=== PATIENT | female | born 1950 | race African-American/Black ===

== ENCOUNTER 2022-06-04 15:04 | Outpatient (CLI) | payer MEDICARE | END 2022-06-04 15:05 | disposition home or self-care (01) | LOC: CSHMAMMO 15:04 | PROVIDERS: ATTEND Family Medicine | DX: Z12.31 Encounter for screening mammogram for malignant neoplasm of breast (principal) | CPT/HCPCS: 77063; 77067 ==

== ENCOUNTER 2023-05-09 07:40 | Observation (INO) | payer OTHER ==
[2023-05-09] MEDS ORDERED: Ondansetron ODT 4 MG TAB PO PRN (09:07)
[2023-05-09] MEDS ORDERED: Ondansetron PF 4 MG/2 ML Vial IVP PRN (09:07)
[2023-05-09] MEDS ORDERED: Acetaminophen 325 MG TAB ONE (11:13)
[2023-05-09] MEDS ORDERED: Carvedilol 12.5 MG TAB PO SCH ×2 (11:45→17:00)
[2023-05-09] MEDS ORDERED: NIFEdipine XL 30 MG ER.TAB PO SCH (11:45)
[2023-05-09] MEDS ORDERED: Carvedilol 6.25 MG TAB ONE (11:56)
[2023-05-09] MEDS ORDERED: NIFEdipine XL 30 MG ER.TAB ONE (11:56)
[2023-05-09 13:46] VITALS: BMI 30.4
[2023-05-09] MEDS: Carvedilol 12.5 MG TAB PO SCH (16:36)
[2023-05-09] MEDS: Acetaminophen 325 MG TAB PO PRN ×2 (16:40→21:16)
[2023-05-09] MEDS: Docusate 100 MG CAP PO PRN (17:26)
[2023-05-09] MEDS ORDERED: Furosemide 40 MG TAB PO SCH (21:00)
[2023-05-09] MEDS: Temazepam 15 MG CAP PO SCH (21:01)
[2023-05-09] MEDS: Potassium Bicarbonate/Cit Ac 20 MEQ TAB PO SCH (21:01)
[2023-05-09] MEDS: Timolol 0.5% Ophth Soln 5 ml Bottle EA EYE SCH (21:02)
[2023-05-09] MEDS: Estradiol 1 MG TAB PO SCH (21:02)
[2023-05-09] MEDS: Brimonidine Tartrate 0.2% Ophth Soln 5 ml Bottle EA EYE SCH (21:03)
[2023-05-09] MEDS: Atorvastatin Calcium 20 MG TAB PO SCH (21:04)
[2023-05-10 04:15] LABS: Anion Gap 11 mmol/L (10-20); BUN (Urea Nitrogen) 12 mg/dL (9.8-20.1); Calc. Creatinine Clearance 93 mL/min (70-130); Calcium 9.5 mg/dL (7.8-10.44); Carbon Dioxide 25 mmol/L (23-31); Chloride 107 mmol/L (98-107); Estimated GFR 85; Glucose 107 mg/dL (83-110); Potassium 3.3 mmol/L (3.5-5.1); Sodium 140 mmol/L (136-145)
[2023-05-10 04:24] LABS: #Eosinphils 0.2 10x3/uL (0.0-0.5); #Monocytes 0.3 10x3/uL (0.0-1.1); #Neutrophils 2.1 10x3/uL (1.5-8.4); %Eosinophils 5.7 % (0.0-6.0); %Lymphocytes 29.8 % (18.0-47.0); %Monocytes 8.3 % (0.0-10.0); %Neutrophils 54.9 % (40.0-75.0); Hematocrit 36.7 % (34.9-44.5); Hemoglobin 12.1 g/dL (12.0-15.5); Mean Corpuscular Hemoglobin 30.3 pg (27.0-33.0); Mean Platelet Volume 12.9 fl (7.4-10.4); Platelet Count 116 10x3/uL (150-450); RBC Distribution Width 14.6 % (11.5-14.5); Red Blood Cell (RBC) Count 3.99 10x6/uL (3.90-5.03); White Blood Cell (WBC) Count 3.9 10x3/uL (3.5-10.5)
[2023-05-10] MEDS: Acetaminophen 325 MG TAB PO PRN (04:30)
[2023-05-10 04:50] LABS: Platelet Adequacy Comment Appears Decreased; RBC Morph Comment Within Normal Limits
[2023-05-10] MEDS ORDERED: Ibuprofen 200 MG TAB PO SCH (07:30)
[2023-05-10] MEDS: traMADol HCl 50 MG TAB PO PRN ×2 (08:48→21:17)
[2023-05-10] MEDS: Potassium Bicarbonate/Cit Ac 20 MEQ TAB PO SCH ×3 (08:50→21:16)
[2023-05-10] MEDS: Docusate 100 MG CAP PO PRN (08:51)
[2023-05-10] MEDS: Aspirin 81 mg Enteric Coated Tablet PO SCH (08:51)
[2023-05-10] MEDS: Carvedilol 12.5 MG TAB PO SCH ×2 (08:51→17:01)
[2023-05-10] MEDS: Estradiol 1 MG TAB PO SCH ×2 (08:51→21:17)
[2023-05-10] MEDS: Brimonidine Tartrate 0.2% Ophth Soln 5 ml Bottle EA EYE SCH ×2 (08:51→21:19)
[2023-05-10] MEDS: Fish Oil 1,000 MG CAP PO SCH (08:51)
[2023-05-10] MEDS: Furosemide 40 MG TAB PO SCH ×2 (08:51→14:37)
[2023-05-10] MEDS: Timolol 0.5% Ophth Soln 5 ml Bottle EA EYE SCH ×2 (08:52→21:20)
[2023-05-10] MEDS ORDERED: Potassium Chloride 20 MEQ TAB PO SCH (09:00)
[2023-05-10] MEDS ORDERED: NIFEdipine XL 30 MG ER.TAB PO SCH ×3 (09:00)
[2023-05-10] MEDS ORDERED: SUMAtriptan Succinate 50 MG TAB PO SCH (11:00)
[2023-05-10] MEDS: Ketorolac Tromethamine 30 MG/ML VIAL IVP SCH ×2 (11:33→17:01)
[2023-05-10] MEDS: SUMAtriptan Succinate 6 MG/0.5 ML VIAL SC PRN ×2 (11:49→14:38)
[2023-05-10] MEDS: Temazepam 15 MG CAP PO SCH (21:16)
[2023-05-10] MEDS: Atorvastatin Calcium 20 MG TAB PO SCH (21:17)
[2023-05-11] MEDS: Aspirin 81 mg Enteric Coated Tablet PO SCH (08:36)
[2023-05-11] MEDS: Timolol 0.5% Ophth Soln 5 ml Bottle EA EYE SCH ×2 (08:36→21:48)
[2023-05-11] MEDS: Potassium Bicarbonate/Cit Ac 20 MEQ TAB PO SCH ×3 (08:36→21:45)
[2023-05-11] MEDS: Furosemide 40 MG TAB PO SCH ×2 (08:36→14:36)
[2023-05-11] MEDS: Brimonidine Tartrate 0.2% Ophth Soln 5 ml Bottle EA EYE SCH ×2 (08:36→21:48)
[2023-05-11] MEDS: Estradiol 1 MG TAB PO SCH ×2 (08:36→21:44)
[2023-05-11] MEDS: NIFEdipine XL 30 MG ER.TAB PO SCH (08:36)
[2023-05-11] MEDS: Fish Oil 1,000 MG CAP PO SCH (08:36)
[2023-05-11] MEDS: Carvedilol 12.5 MG TAB PO SCH ×2 (08:36→14:36)
[2023-05-11] MEDS: SUMAtriptan Succinate 6 MG/0.5 ML VIAL SC PRN ×2 (09:58→21:43)
[2023-05-11] MEDS: Temazepam 15 MG CAP PO SCH (21:45)
[2023-05-11] MEDS: Atorvastatin Calcium 20 MG TAB PO SCH (21:45)
[2023-05-12 07:17] VITALS: BP 163/75; TEMP 98.1
[2023-05-12] MEDS: Furosemide 40 MG TAB PO SCH (08:30)
[2023-05-12] MEDS: Potassium Bicarbonate/Cit Ac 20 MEQ TAB PO SCH (08:30)
[2023-05-12] MEDS: Carvedilol 12.5 MG TAB PO SCH (08:30)
[2023-05-12] MEDS: Fish Oil 1,000 MG CAP PO SCH (08:30)
[2023-05-12] MEDS: NIFEdipine XL 30 MG ER.TAB PO SCH (08:30)
[2023-05-12] MEDS: Estradiol 1 MG TAB PO SCH (08:30)
[2023-05-12] MEDS: Aspirin 81 mg Enteric Coated Tablet PO SCH (08:30)
[2023-05-12] MEDS: Timolol 0.5% Ophth Soln 5 ml Bottle EA EYE SCH (08:31)
[2023-05-12] MEDS: Brimonidine Tartrate 0.2% Ophth Soln 5 ml Bottle EA EYE SCH (08:31)
== END 2023-05-12 10:43 | disposition home or self-care (01) ==
LOC: CSHERS 07:40 → INTOOBSV 09:07 → CSHERHOLD 09:07 → CSHTELE 13:26
PROVIDERS: ADMIT Student in an Organized Health Care Education/Training Program; ATTEND Internal Medicine
DX: I10 Essential (primary) hypertension (principal); G43.909 Migraine, unspecified, not intractable, without status migrainosus; I47.1 Supraventricular tachycardia; M19.90 Unspecified osteoarthritis, unspecified site; H40.9 Unspecified glaucoma; Z91.048 Other nonmedicinal substance allergy status; Z79.82 Long term (current) use of aspirin; Z79.899 Other long term (current) drug therapy
CPT/HCPCS: 70450; 71045; 80048; 80053; 81001; 83880; 84484; 85025 ×2; 93005 ×2; 94760 ×5; 96372; 96374; 96376; G0378 ×5; 36415; 93010; 96365; 96375; J1200; J1885; J2405; J2765; J3030; Q0162

== ENCOUNTER 2023-06-07 10:31 | Outpatient (CLI) | payer MEDICARE | END 2023-06-07 10:32 | disposition home or self-care (01) | LOC: CSHMAMMO 10:31 | PROVIDERS: ATTEND Family Medicine | DX: Z12.31 Encounter for screening mammogram for malignant neoplasm of breast (principal) | CPT/HCPCS: 77063; 77067 ==

== ENCOUNTER 2024-07-07 10:16 | Outpatient (CLI) | payer OTHER | END 2024-07-07 10:17 | disposition home or self-care (01) | LOC: CSHMAMMO 10:16 | PROVIDERS: ATTEND Family Medicine | DX: Z12.31 Encounter for screening mammogram for malignant neoplasm of breast (principal) | CPT/HCPCS: 77063; 77067 ==

== ENCOUNTER 2024-09-21 10:42 | Outpatient (CLI) | payer OTHER ==
[~2024-09-21 10:42] MED LIST: Iopamidol 300 61% 100 ML VIAL FS ONE
== END 2024-09-21 10:43 | disposition home or self-care (01) ==
LOC: CSHCT 10:42
PROVIDERS: ATTEND Family Medicine
DX: R59.1 Generalized enlarged lymph nodes (principal); R59.0 Localized enlarged lymph nodes
CPT/HCPCS: 36415; 74177; 82565

== ENCOUNTER 2025-07-09 11:12 | Outpatient (CLI) | payer OTHER | END 2025-07-09 11:13 | disposition home or self-care (01) | LOC: CSHMAMMO 11:12 | PROVIDERS: ATTEND Family Medicine | DX: Z12.31 Encounter for screening mammogram for malignant neoplasm of breast (principal) | CPT/HCPCS: 77063; 77067 ==